=== PATIENT | male | born 1970 | race Hispanic/Latino ===

== ENCOUNTER 2019-04-28 17:18 | Emergency (ER) ==
[2019-04-28] MEDS ORDERED: Adacel (T-DAP) 0.5 ML SYRINGE ONE (17:40)
--- NOTE | 2019-04-28 17:46 | RAD ---
LEFT INDEX FINGER TWO VIEWS: 04/28/19 HISTORY: Crush injury to the left index finger with pain. FINDINGS: There are displaced comminuted fractures involving the tuft of the distal phalanx of the left index f dorinda. POS: [facility]
[2019-04-28] MEDS ORDERED: CEFAZOLIN 1 GM VIAL ONE (17:53)
[2019-04-28] MEDS ORDERED: Sterile Water 10 ML ONE (17:55)
[2019-04-28] MEDS ORDERED: Triple Antibiotic Oint 1 GM Packet ONE (18:11)
== END 2019-04-28 18:38 | disposition home or self-care (01) ==
LOC: ERS 17:18
DX: S67.191A Crushing injury of left index finger, initial encounter (principal); S62.631A Displaced fracture of distal phalanx of left index finger, initial encounter for closed fracture; S61.301A Unspecified open wound of left index finger with damage to nail, initial encounter; F17.210 Nicotine dependence, cigarettes, uncomplicated; W23.0XXA Caught, crushed, jammed, or pinched between moving objects, initial encounter
CPT/HCPCS: 11730; 90471; 90715; 96372; J0690